=== PATIENT | female | born 1980 | race Caucasian/White ===

== ENCOUNTER 2017-01-22 00:16 | Emergency (ER) | payer OTHER ==
--- NOTE | 2017-01-25 19:03 | ER ---
ADMIT: 01/22/2017 RM/LOC: ER [facility] MR#: [id number] [address] [address] NIKUNJ HAMM S [address] [facility], [place] [address] Emergency Room Report SEX: F AGE: 36 : 1980 DATE: 01/22/2017 ADDENDUM: A 36-year-old female seen tonight by Dr. Li. I refer you to his T-sheet and dictation. She had a CAT scan for a stone, which did show a 3 mm stone. The radiologist had called and talked to me about a splenic cyst that they suggested that should be followed up. I spoke with Dr. Chanel's nurse this morning, informed them of the findings, so that she can follow accordingly. Jerry Renteria MD/ kyle JOB #: [id number] CC: Eugenio Li MD, Attending Physician mEma Chanel MD, Family Physician
--- NOTE | 2017-01-25 19:06 | ER ---
ADMIT: 01/22/2017 RM/LOC: ER [facility] MR#: [id number] [facility] [address] [place], [place] [address] NIKUNJ HAMM S [address] [place] [address] Emergency Room Report SEX: F AGE: 36 : 1980 DATE: 01/22/2017 The patient is a 36-year-old female, complaining of right flank pain associated with urinary urgency, nausea, vomiting, family history of kidney stones. Exam remarkable for morbidly obese, nontoxic, afebrile, acutely uncomfortable female. Slightly tender to palpation right lower quadrant. No CVA tenderness. CT shows mild right hydroureter and 3 mm UVJ stone. Lab otherwise remarkable for normal CBC and CMP. CRP 2.71. Lactic 1.2. Three wbc's, 75 rbc's, 1+ protein, and blood with 7 squamous cells. The patient was given 2 L of fluid, Zofran 16 mg, Reglan 5 mg, and Flomax 0.4 mg with slight improvement of pain, but persistent vomiting. Discharged with Percocet 5/325 #20 plus 6, Flomax 0.4 mg #30 p.r.n. renal colic, Zofran 8 mg ODT t.i.d. p.r.n. #30. Push fluids. Strain urine. Follow up Dr. Chanel or Nahum as needed. Eugenio Li MD/ kyle JOB #: [id number] CC: Eugenio Li MD, Attending Physician Emma Chanel MD, Family Physician MD Tim Roth MD
== END 2017-01-22 03:40 | disposition home or self-care (01) ==
LOC: ER 00:16
DX: N13.2 Hydronephrosis with renal and ureteral calculous obstruction (principal); R10.31 Right lower quadrant pain; R11.2 Nausea with vomiting, unspecified; I10 Essential (primary) hypertension; Z90.49 Acquired absence of other specified parts of digestive tract; Z90.89 Acquired absence of other organs; Z79.899 Other long term (current) drug therapy; Z88.8 Allergy status to other drugs, medicaments and biological substances